=== PATIENT | female | born 1980 | race African-American/Black ===

== ENCOUNTER 2024-04-15 17:51 | Emergency (ER) | payer MEDICAID, SELFPAY ==
[2024-04-15] MEDS ORDERED: Ibuprofen 800 MG TAB ONE (19:15)
== END 2024-04-15 19:58 | disposition home or self-care (01) ==
LOC: NAV ERS 17:51
DX: B34.9 Viral infection, unspecified (principal); I10 Essential (primary) hypertension
CPT/HCPCS: 87428; 99283